=== PATIENT | female | born 1975 | race African-American/Black ===

== ENCOUNTER 2018-04-13 17:59 | Inpatient (IN) | payer OTHER ==
[~2018-04-13] VITALS: Ht 165.1 cm; Wt 138.5 kg
--- NOTE | ~2018-04-13 | EKG ---
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 : 1975 Requested By: Gatito Olmedo Order Number: [id number] MD: Silvestre Krishna Measurements Intervals [place] Rate: 108 P: 45 KS: 128 QRS: 20 QRSD: 79 T: -24 QT: 325 QTc: 436 Interpretive Statements Sinus tachycardia Nonspecific T wave abnormality Poor R wave progression No previous ECG available for comparison Electronically Signed On 04-14-2018 8:42:41 CDT by Silvestre Krishna [email or web address] <ELECTRONICALLY SIGNED> By: Silvestre Krishna MD, [facility] 04/14/18 0842 1809 180 Silvestre Krishna MD, FACC /EPI
--- NOTE | ~2018-04-13 | HC ---
[facility] [address] CONSULTATION Name: MARIAELENA SAHNI Room #: 201-P ADM IN M.R.#: [id number] Admission: 04/13/18 Attend Phys: Emery Rainey MD Discharge: Date of : 71 Report #: [id number] THIS REPORT FOR: //name// CC: Donny Rainey DATE OF SERVICE: 04/15/2018 ATTENDING PHYSICIAN: CHIEF COMPLAINT: Epistaxis. HISTORY OF PRESENT ILLNESS: The patient is a 42-year-old female who is transferred from [facility] via EMS to the emergency room 2 days ago for increasing left-sided chest sensations and dyspnea. She also noted increased chronic knee pain. Noted during en route that she was tachycardic and hypoxic. During the workup in the emergency room, chest x-ray suggested pulmonary edema was present. She was placed in the CCU with acute hypoxic respiratory failure, fluid overload, and history of DVT with subtherapeutic levels of Coumadin and placed on Lovenox on top of her Coumadin. She also had hypertension, which was stable. Her initial INR was subtherapeutic as was her PT. Since being in the hospital the last several days, she has been on nasal oxygen with her demand becoming less, so she has been aggressively diuresed. This morning, she noted a brief left epistaxis, which she was able to control with digital pressure after approximately 10 minutes. She has not had any problems since this morning. In discussion with her, she relates a longstanding history of intermittent mild recurring left nasal bleeds for years, typically occurring over several weeks. She has not had one for several weeks. She has never had any direct treatment for these recurring epistaxis. It should be noted that she has not been on oxygen in the past. I was asked to see her to further evaluate her nares. PAST MEDICAL AND SURGICAL HISTORY: Notable for chronic renal failure, elevated D-dimer, and elevated troponin levels, history of DVT times 2, chronic left knee pain, chronic and severe gout, morbid obesity. PREVIOUS SURGICAL HISTORY: Notable for previous adenotonsillectomy as a young child. FAMILY HISTORY: Notable for mother who at a young age of myocardial infarction. Father had liver cancer. She had a grandmother who had a history of chronic renal failure. SOCIAL HISTORY: She does not imbibe in alcohol or use tobacco products. She resides in nursing facility, was fairly independent. She does say she has had [facility] [address] [place] [address] CONSULTATION Name: MARIAELENA SAHNI Room #: 201-P [facility] IN [facility]#: [id number] Admission: 04/13/18 Attend Phys: Emery Rainey MD Discharge: Date of : 71 Report #: [id number] previous sleep studies, which have not documented sleep apnea. MEDICATIONS: Medication list was reviewed. In her active medication list, of note is the use of the anticoagulants mentioned above. LABORATORY TESTS: Pertinent values: Last hemoglobin of 13.5, hematocrit of 39.6, PT of 17.1, INR of 1.7 with a goal of 2 to 3. It should be noted her PT was 14.2 and an INR of 1.4 on arrival 2 days ago. PHYSICAL EXAMINATION: GENERAL: She was examined in her hospital room. She was seated in her hospital chair with face mask oxygen on, which I had asked to be replaced with nasal cannula. She is alert and oriented, and pleasant in conversation. She was found to be normotensive. HEENT: Examination of the ears was unimpressive. Oral cavity was normal with somewhat dry mucosa. Oropharynx was normal with the exception of some dried blood in the oropharyngeal mucosa. NECK: Normal, but full. Anterior nares revealed some dry mucus, slightly bloody on the right side. The right nasal septal mucosa is extremely dry. No active bleeding noted on this side. On the left side, there was a large fresh clot present, see procedure note. Remainder of her head. Remainder of her head and neck examination was without any positive findings. ASSESSMENT: 1. Acute left anterior/mid septum epistaxis secondary to the combination of the drying infection of the nasal oxygen, previous history of a small nasal septal ulcer, which has been exacerbated by the dryness, and the increase in the anticoagulation. 2. History of acute kidney injury. 3. Diabetes mellitus, hypertension, hypoxia, fluid overload. PLAN: See procedure note for details of treatment for left anterior epistaxis. I recommended the patient not evacuate her nose for at least 7-10 days. She will use a nasal saline spray to keep the nasal mucosa somewhat moist. When she is discharged, she will seed cone picker some [place] nasal gel spray and use this on a regular basis for nasal moisturization. She will need to avoid using any nasal oxygen cannula. Instead, if she needs to be on oxygen, rely on the face mask, which should be humidified air, which she breathes only. She was instructed on the proper way to stop a nosebleed if she has one in the future. She was given a small piece of nasal C-sponge to use in event she has any problems once out of the hospital. I will be happy to reevaluate her as an outpatient should she have further problems when she is discharged from the hospital. Nursing was instructed on these findings as well. Thank you for this consultation. [facility] [place] [address] CONSULTATION Name: MARIAELENA SAHNI Room #: 201-P ADM IN M.R.#: [id number] Admission: 04/13/18 Attend Phys: Emery Rainey MD Discharge: Date of : 71 Report #: [id number] PROCEDURE NOTE: After discussion, the procedure with the patient and verbally obtaining consent, the left naris was evacuated of clots with suction back to the mid posterior nares. There is noted to be a small septal ulcer on the mid portion of the left anterior septum. There was also some mild trauma to the inferior turbinate on this medial inferior edge. After evacuating the clot, several pieces of cotton soaked with Afrin and polocaine were placed in the left naris for vasoconstriction. It should be noted there was no active bleeding, but just a slight oozing was present. After waiting several minutes, the Pontocaine cotton ball was removed, silver nitrate sticks times 2 were applied directly to the nasal septal ulcer and to the small tear of the mucosa on the inferior turbinate. I then placed a single piece of Surgicel over the areas of cauterization. She was observed for several minutes. No other problems were noted at that time. By: [id number] [id number] Royce Amaral MD /nt
--- NOTE | ~2018-04-13 | 2DMMODE ---
[facility] [address] [place] [address] 2 D/M-MODE ECHOCARDIOGRAM Name: MARIAELENA SAHNI Room #: 201-P ADM IN M.R.#: [id number] Admission: 04/13/18 Attend Phys: Soumya Evans Discharge: Date of : 71 Date of Service: 04/14/18 1222 Report #: [id number] THIS REPORT FOR: //name// APPROVED REPORT Study performed: 04/14/2018 10:55:36 EXAM: Comprehensive 2D, Doppler, and color-flow Echocardiogram Patient Location: Bedside Room #: 201 Status: routine BSA: 2.23 HR: 65 bpm BP: 113/43 mmHg Other Information Study Quality: Adequate Indications Diabetes Hypertension/HDD 2D Dimensions RVDd: 40.28 mm LVEF(%): 59.57 (>50%) IVSd: 11.41 (7-11mm) LVOT Diam: 20.90 (18-24mm) LVDd: 53.34 mm PWd: 10.56 (7-11mm) Ascending Ao: 29.19 (22-36mm) LVDs: 36.30 (25-40mm) Aortic Root: 29.09 mm IVC: 16.00 mm Martinez's LVEF: 59.57 % Volumes Left Atrial Volume (Systole) Single Plane 4CH: 24.04 mL Single Plane 2CH: 35.19 mL LA ESV Index: 15.00 mL/m2 Aortic Valve AoV Peak Gary.: 1.51 m/s AO Peak Gr.: 9.15 mmHg LVOT Max P.44 mmHg LVOT Max V: 1.05 m/s WEST Vmax: 2.39 cm2 Mitral Valve E/A Ratio: 1.4 MV Decel. Time: 224.97 ms [facility] [place] [address] 2 D/M-MODE ECHOCARDIOGRAM Name: KAITLYNMARIAELENA Room #: 201-P [facility] IN M.R.#: [id number] Admission: 04/13/18 Attend Phys: Soumya Evans Discharge: Date of : 71 Date of Service: 04/14/18 1222 Report #: [id number] MV E Max Gary.: 0.89 m/s MV A Gary.: 0.62 m/s MV PHT: 65.24 ms IVRT: 69.20 ms Pulmonary Valve PV Peak Gary.: 0.91 m/s PV Peak Gr.: 3.33 mmHg Pulmonary Vein P Vein S: 0.42 m/s P Vein A: 0.26 m/s P Vein D: 0.34 m/s P Vein A Dur.: 83.0 msec P Vein S/D Ratio: 1.24 Tricuspid Valve TR Peak Gary.: 2.72 m/s TR Peak Gr.: 29.59 mmHg PA Pressure: 35.00 mmHg Left Ventricle The left ventricle is normal size. There is normal LV segmental wall motion. There is normal left ventricular wall thickness. The left ventricular systolic function is normal. The left ventricular ejection fraction is within the normal range. LVEF is 55-60%. The left ventricular diastolic function is normal. Right Ventricle The right ventricle is normal size. The right ventricular systolic function is normal. Atria The left atrium size is normal. The right atrium size is normal. Aortic Valve The aortic valve is normal in structure. No aortic regurgitation is present. There is no aortic valvular stenosis. Mitral Valve The mitral valve is normal in structure. Trace mitral regurgitation. No evidence of mitral valve stenosis. Tricuspid Valve The tricuspid valve is normal in structure. There is trace tricuspid regurgitation. Estimated PAP 35 mmHg. There is mild pulmonary hypertension. [facility] [address] [place] [address] 2 D/M-MODE ECHOCARDIOGRAM Name: MARIAELENA SAHNI Room #: 201-P [facility] IN .R.#: [id number] Admission: 04/13/18 Attend Phys: Soumya Evans Discharge: Date of : 71 Date of Service: 04/14/18 1222 Report #: [id number] Pulmonic Valve The pulmonary valve is normal in structure. There is no pulmonic valvular regurgitation. Great Vessels The aortic root is normal in size. IVC is normal in size and collapses >50% with inspiration. Pericardium There is no pericardial effusion. <Conclusion> The left ventricular systolic function is normal. There is normal LV segmental wall motion. LVEF is 55-60%. Normal diastolic function The aortic valve is normal in structure. No aortic regurgitation or stenosis The mitral valve is normal in structure. Trace mitral regurgitation. There is trace tricuspid regurgitation. Estimated pulmonary artery pressure of 35 mmHg. There is no pericardial effusion. <ELECTRONICALLY SIGNED> By: Silvestre Krishna MD, FACC 04/14/18 1222 122 122 Silvestre Krishna MD, FACC /INF
--- NOTE | ~2018-04-13 | HC ---
[facility] [place] [address] [place] [address] CONSULTATION Name: MARIAELENA SAHNI Room #: 201-P ADM IN M.R.#: [id number] Admission: 04/13/18 Attend Phys: Emery Rainey MD Discharge: Date of : 71 Report #: [id number] THIS REPORT FOR: //name// CC: Donny Rainey DATE OF SERVICE: 04/15/2018 REASON FOR THE PRESENTATION: Chest pain. HISTORY OF PRESENT ILLNESS: A 42-year-old with past medical history of diabetes mellitus and hypertension. She is also known to have DVT and maintained on Coumadin. She is a detention facility. She presented with different complaints including left-sided chest pain, shortness of breath. The pain was actually localized to the left shoulder area. She also reported shortness of breath and dyspnea on exertion. She tells me that she had seen a kidney specialist at [facility] and was told that she has a very mild kidney dysfunction. When she presented yesterday, her creatinine was 2.4. She is not aware of nonsteroidal anti-inflammatory medication usage. She is diabetic and maintained on blood pressure and blood sugar medications, but she does not recall those medications. She is also maintained on colchicine on daily basis. No known personal or family history of connective tissue disorders or glomerulonephritis. Her grandmother was a dialysis patient. She tells me that she stays in the nursing facility because of chronic pain. An echo was done yesterday and this showed normal ejection fractions with normal diastolic function. Creatinine had risen up to 3 this morning. BUN had also started to climb up from 45-77. I am being asked to manage her acute kidney injury. PAST MEDICAL HISTORY: 1. Diabetes mellitus. 2. DVT. 3. Hypertension. 4. Hyperlipidemia. 5. Morbid obesity. 6. Chronic pain syndrome. PAST SURGICAL HISTORY: Tonsillectomy. FAMILY HISTORY: Mom of an [place] at the age of 38. Father had liver cancer. SOCIAL HISTORY: No drug or alcohol abuse. She resides in a nursing facility. REVIEW OF SYSTEMS: GENERAL: Significant for the above-mentioned symptoms. No syncope. CARDIOVASCULAR: No chest pain, but dyspnea on exertion present. [facility] [address] [place] [address] CONSULTATION Name: MARIAELENA SAHNI Room #: 201-P [facility] IN M.R.#: [id number] Admission: 04/13/18 Attend Phys: Emery Rainey MD Discharge: Date of : 71 Report #: [id number] PULMONARY: No cough or hemoptysis. GASTROINTESTINAL: No nausea or vomiting. GENITOURINARY: No frequency, no urgency. MEDICATIONS: Listed amongst her home medications. 1. Carvedilol. 2. Voltaren gel. 3. Torsemide. 4. Allopurinol. 5. Colchicine. PHYSICAL EXAMINATION: GENERAL: She is alert, oriented. VITAL SIGNS: Blood pressure was marginal at 95/59. HEAD AND NECK: No jugular venous distention, no bruit, no thyromegaly. CHEST: Clear to auscultation bilaterally. CARDIOVASCULAR: Distant with no rub. ABDOMEN: Soft, nontender. LOWER EXTREMITIES: No edema. LABORATORY DATA: Laboratory values reviewed. Urine is significant for +2 protein with some white blood cell and white blood cell clumps. Bacteria is present. Creatinine is up to 3. BUN is 77. TSH is within normal. C-reactive protein is significantly elevated at 182. White blood cell count was marginally elevated at 12. Urine drug screen positive for opiates. Chest x-ray and lung scan were reviewed. ASSESSMENT, IMPRESSION AND PLAN: 1. Acute kidney injury. 2. Leukocytosis. 3. Elevated C-reactive protein. 4. Diabetes mellitus. 5. Hypertension. 6. I will send appropriate laboratory investigation for her acute kidney injury. Her baseline creatinine is around 1.5. At this point, I will stop her colchicine and torsemide. 7. Pending urine culture. 8. Strict input and output. 9. Daily body weight. 10. Antibiotic initiated by primary team. 11. [place] [address] CONSULTATION Name: MARIAELENA SAHNI Room #: 201-P ADM IN M.R.#: [id number] Admission: 04/13/18 Attend Phys: Emery Rainey MD Discharge: Date of : 71 Report #: [id number] 12. Blood pressure control. 13. Resuming her Coumadin. <ELECTRONICALLY SIGNED> By: Jada Ibrahim MD 04/15/18 0734 0643 1 Jada Irbahim MD /nt
[2018-04-13 18:00] VITALS: BP 146/55
[2018-04-13 18:52] LABS: BE(vivo) 7.3 mmol/L (-2 to +3); HCO3 34.4 mmol/L (22.0-26.0); PCO2 58.2 mmHg (35.0-45.0); PO2 67.5 mmHg (80.0-100.0); pH 7.389 (7.360-7.450); sO2 92.9 % (92.0-98.0)
[2018-04-13 19:23] LABS: ABSOLUTE NEUTROPHILS 9.5 thou/uL (1.4-8.2); BASOPHILS 0.5 % (0.0-2.0); EOSINOPHILS 0.7 % (0.0-3.0); HEMATOCRIT 44.4 % (37.0-47.0); HEMOGLOBIN 14.6 gm/dL (12.0-15.0); LYMPHOCYTES 11.2 % (24.0-44.0); MCH 30.1 pg (26.0-34.0); MCHC 32.8 g/dL (28.0-37.0); MCV 91.7 fL (80.0-100.0); MONOCYTES 8.4 % (1.0-8.0); PLATELET COUNT 255 thou/uL (150-400); POLYS 79.2 % (36.0-66.0); RBC 4.84 mil/uL (4.20-5.00); RDW 16.9 % (10.5-14.5)
[2018-04-13 19:30] LABS: CALCIUM 9.3 mg/dL (8.5-10.1); CREATININE 2.4 mg/dL (0.6-1.0); POTASSIUM 4.2 mmol/L (3.5-5.1)
[2018-04-13 19:38] LABS: ALBUMIN 2.8 g/dL (3.4-5.0); MAGNESIUM 1.5 mg/dL (1.8-2.4); TOTAL BILIRUBIN 0.5 mg/dL (<0.1-1.0); TOTAL PROTEIN 9.2 g/dL (6.4-8.2); TROPONIN-I 0.08 ng/mL (<0.06)
[2018-04-13 19:40] LABS: APTT 35.9 Seconds (24.5-32.8); D-DIMER 0.64 ug/mLFEU (0.19-0.50); INR 1.4; PROTIME 14.2 Seconds (9.3-11.4)
[2018-04-13 21:38] VITALS: BP 133/76
[2018-04-13 21:47] VITALS: BP 133/76
[2018-04-13 22:31] VITALS: BP 111/97
[2018-04-13 23:55] LABS: URINE BILIRUBIN 1+ (Negative); URINE BLOOD 1+ (Negative); URINE CLARITY SL CLOUDY; URINE COLOR YELLOW; URINE GLUCOSE-RANDOM* NEGATIVE (Negative); URINE KETONES NEGATIVE (Negative); URINE NITRITE-REFLEX NEGATIVE (Negative); URINE PROTEIN (DIPSTICK) 2+ (Negative); URINE SPECIFIC GRAVITY 1.025 (1.005-1.035); URINE UROBILINOGEN 0.2 E.U./dl (0.2-1.0)
[2018-04-13 23:56] LABS: URINE LEUKOCYTES-REFLEX 1+ (Negative)
[2018-04-14 00:01] LABS: ICTOTEST (BILI CONFIRMATORY) Positive (Negative)
[2018-04-14 00:02] LABS: AMP/METHAMP Negative (Negative); BARBITURATES Negative (Negative); BENZODIAZEPINES Negative (Negative); COCAINE Negative (Negative); METHADONE Negative (Negative); OPIATES POSITIVE (Negative); PCP Negative (Negative)
[2018-04-14 00:05] LABS: SQUAMOUS 0-3 Few /LPF (0-3)
[2018-04-14 00:06] LABS: BACTERIA-REFLEX >30 Many /HPF (None Seen); CASTS None Seen /LPF (None Seen); CRYSTALS None Seen /LPF (None Seen); MUCUS 0-3 Light strn/LPF (None Seen); URINE RBC 0-2 Rare /HPF (0-2); WBC CLUMPS Moderate (None Seen)
[2018-04-14 01:42] LABS: HEMATOCRIT 39.6 % (37.0-47.0); HEMOGLOBIN 13.5 gm/dL (12.0-15.0); MCH 30.1 pg (26.0-34.0); MCHC 34.1 g/dL (28.0-37.0); RBC 4.5 mil/uL (4.20-5.00); RDW 16.2 % (10.5-14.5); WBC 11.7 thou/uL (4.0-11.0)
[2018-04-14 01:52] LABS: CALCIUM 9.2 mg/dL (8.5-10.1); CREATININE 2.4 mg/dL (0.6-1.0); INR 1.4; MAGNESIUM 1.8 mg/dL (1.8-2.4); POTASSIUM 4.4 mmol/L (3.5-5.1); PROTIME 14.5 Seconds (9.3-11.4)
[2018-04-14] MEDS ORDERED: ALLOPURINOL 10100 M2 PO (04:27)
[2018-04-14] MEDS ORDERED: CARVEDILOL6.25 M1 PO (04:28)
[2018-04-14] MEDS ORDERED: VITAMIN D2000 UNIT PO (04:29)
[2018-04-14] MEDS ORDERED: FEOSOL325 M1 PO (04:30)
[2018-04-14] MEDS ORDERED: MAGOX 400400 MG PO (04:31)
[2018-04-14] MEDS ORDERED: COLCHICINE0.6 MG PO (04:33)
[2018-04-14] MEDS ORDERED: IPRAT-ALBUT 0.5-3 ML IH (04:33)
[2018-04-14] MEDS ORDERED: OXYCONTIN10 M1 PO (04:34)
[2018-04-14] MEDS ORDERED: MIRALAX17 G1 PO (04:35)
[2018-04-14] MEDS ORDERED: RENVELA800 MG PO (04:36)
[2018-04-14] MEDS ORDERED: TORSEMIDE10 MG PO (04:37)
[2018-04-14] MEDS ORDERED: VENTOLIN HFA 1818 GM INH (04:39)
[2018-04-14] MEDS ORDERED: VOLTAREN GEL 1100 G1 TRANSDERM (04:40)
[2018-04-14] MEDS ORDERED: COUMADIN6 MG PO (04:41)
[2018-04-14 04:45] VITALS: BP 113/43
[2018-04-14 07:18] VITALS: BP 106/70
[2018-04-14 11:50] VITALS: BP 108/61
[2018-04-14 15:11] VITALS: BP 111/83
[2018-04-14 19:12] VITALS: BP 101/62
[2018-04-15 04:18] VITALS: BP 95/59
[2018-04-15 04:25] LABS: INR 1.7; PROTIME 17.1 Seconds (9.3-11.4)
[2018-04-15 04:29] LABS: CALCIUM 8.7 mg/dL (8.5-10.1); MAGNESIUM 2.1 mg/dL (1.8-2.4); POTASSIUM 4.3 mmol/L (3.5-5.1)
[2018-04-15 07:29] VITALS: BP 112/59
[2018-04-15 08:52] LABS: URINE CREATININE-RANDOM* 115.2 mg/dL; URINE PROTEIN-RANDOM* 19.6 mg/dL (<11.9)
[2018-04-15 11:17] VITALS: BP 117/69
[2018-04-15 16:16] VITALS: BP 112/55
[2018-04-15 19:29] VITALS: BP 105/64
[2018-04-16 03:31] LABS: ALBUMIN 2.5 g/dL (3.4-5.0); CALCIUM 8.6 mg/dL (8.5-10.1); CREATININE 2.2 mg/dL (0.6-1.0); PHOSPHORUS 4.4 mg/dL (2.5-4.9)
[2018-04-16 03:36] LABS: INR 1.6; PROTIME 16.6 Seconds (9.3-11.4)
[2018-04-16 04:49] VITALS: BP 118/70
[2018-04-16 07:44] VITALS: BP 120/71
[2018-04-16 12:13] VITALS: BP 97/64
[2018-04-16 19:10] VITALS: BP 93/57
[2018-04-17 03:31] LABS: HEMATOCRIT 37.9 % (37.0-47.0); HEMOGLOBIN 12.4 gm/dL (12.0-15.0); MCH 30.4 pg (26.0-34.0); MCHC 32.6 g/dL (28.0-37.0); MCV 93.3 fL (80.0-100.0); PLATELET COUNT 283 thou/uL (150-400); RBC 4.07 mil/uL (4.20-5.00); RDW 16.7 % (10.5-14.5); WBC 6.7 thou/uL (4.0-11.0)
[2018-04-17 03:39] LABS: INR 1.6; PROTIME 16.4 Seconds (9.3-11.4)
[2018-04-17 03:45] LABS: ALBUMIN 2.6 g/dL (3.4-5.0); CALCIUM 9.1 mg/dL (8.5-10.1); CREATININE 1.9 mg/dL (0.6-1.0); PHOSPHORUS 4.7 mg/dL (2.5-4.9)
[2018-04-17 03:50] VITALS: BP 127/65
[2018-04-17 06:13] LABS: ABSOLUTE NEUTROPHILS 3.8 thou/uL (1.4-8.2); ANISOCYTOSIS 1+
[2018-04-17 07:15] VITALS: BP 145/77
[2018-04-17 11:46] VITALS: BP 118/62
[2018-04-17 13:21] LABS: BE(vivo) 10.6 mmol/L (-2 to +3); HCO3 39.2 mmol/L (22.0-26.0); sO2 79.5 % (92.0-98.0)
[2018-04-17 13:22] LABS: PCO2 72.7 mmHg (35.0-45.0); PO2 47.5 mmHg (80.0-100.0)
[2018-04-17 17:28] VITALS: BP 159/114
[2018-04-17 19:10] VITALS: BP 140/93
[2018-04-18] VITALS (23 sets, daily range): BP systolic 104–143; BP diastolic 64–104
[2018-04-18 02:09] LABS: HEMATOCRIT 38.5 % (37.0-47.0); HEMOGLOBIN 12.3 gm/dL (12.0-15.0); MCH 29.4 pg (26.0-34.0); MCHC 31.9 g/dL (28.0-37.0); MCV 92.3 fL (80.0-100.0); PLATELET COUNT 299 thou/uL (150-400); RBC 4.17 mil/uL (4.20-5.00); RDW 16.3 % (10.5-14.5); WBC 9.9 thou/uL (4.0-11.0)
[2018-04-18 02:20] LABS: ALBUMIN 2.5 g/dL (3.4-5.0); CALCIUM 9.7 mg/dL (8.5-10.1); CREATININE 1.7 mg/dL (0.6-1.0); PHOSPHORUS 2.4 mg/dL (2.5-4.9); POTASSIUM 4.4 mmol/L (3.5-5.1)
[2018-04-18 03:40] LABS: ABSOLUTE NEUTROPHILS 4.3 thou/uL (1.4-8.2); ANISOCYTOSIS 1+
[2018-04-18 08:08] LABS: HEMATOCRIT 33.5 % (37.0-47.0); MCH 29.9 pg (26.0-34.0); MCHC 32.8 g/dL (28.0-37.0); MCV 91.1 fL (80.0-100.0); RBC 3.68 mil/uL (4.20-5.00); WBC 10.9 thou/uL (4.0-11.0)
[2018-04-18 08:20] LABS: INR 1.6; PROTIME 16.2 Seconds (9.3-11.4)
[2018-04-18 17:08] LABS: KAPPA FREE LIGHT CHAINS 95.1 mg/L (3.3-19.4); KAPPA/LAMBDA RATIO 1.19 (0.26-1.65); LAMBDA FREE LIGHT CHAINS 79.7 mg/L (5.7-26.3)
[2018-04-19] VITALS (26 sets, daily range): BP systolic 74–137; BP diastolic 58–87
[2018-04-19 05:42] LABS: ABSOLUTE NEUTROPHILS 12.9 thou/uL (1.4-8.2); BASOPHILS 0.6 % (0.0-2.0); EOSINOPHILS 1.5 % (0.0-3.0); HEMATOCRIT 30.8 % (37.0-47.0); HEMOGLOBIN 9.8 gm/dL (12.0-15.0); LYMPHOCYTES 15.6 % (24.0-44.0); MCH 29.4 pg (26.0-34.0); MCV 91.9 fL (80.0-100.0); MONOCYTES 8.2 % (1.0-8.0); PLATELET COUNT 293 thou/uL (150-400); POLYS 74.1 % (36.0-66.0); RBC 3.35 mil/uL (4.20-5.00); WBC 17.4 thou/uL (4.0-11.0)
[2018-04-19 05:56] LABS: ALBUMIN 2.2 g/dL (3.4-5.0); CALCIUM 9.1 mg/dL (8.5-10.1); CREATININE 1.9 mg/dL (0.6-1.0); PHOSPHORUS 4.8 mg/dL (2.5-4.9); POTASSIUM 4.3 mmol/L (3.5-5.1)
[2018-04-19 07:13] LABS: GLOBULIN TOTAL 4.5 g/dL (2.2-3.9); M-SPIKE Not Observed g/dL (Not Observed)
[2018-04-20] VITALS (10 sets, daily range): BP systolic 91–132; BP diastolic 52–72
[2018-04-20 05:10] LABS: ALBUMIN 2.3 g/dL (3.4-5.0); CALCIUM 8.7 mg/dL (8.5-10.1); CREATININE 1.8 mg/dL (0.6-1.0); PHOSPHORUS 5.2 mg/dL (2.5-4.9); POTASSIUM 4.2 mmol/L (3.5-5.1)
[2018-04-21 04:48] VITALS: BP 106/58
[2018-04-21 05:54] LABS: ALBUMIN 2.3 g/dL (3.4-5.0); CALCIUM 8.7 mg/dL (8.5-10.1); CREATININE 1.8 mg/dL (0.6-1.0); PHOSPHORUS 3.6 mg/dL (2.5-4.9); POTASSIUM 4.4 mmol/L (3.5-5.1)
[2018-04-21 06:23] LABS: ABSOLUTE NEUTROPHILS 14.6 thou/uL (1.4-8.2); BASOPHILS 0.5 % (0.0-2.0); EOSINOPHILS 0.3 % (0.0-3.0); HEMATOCRIT 26.5 % (37.0-47.0); HEMOGLOBIN 8.4 gm/dL (12.0-15.0); LYMPHOCYTES 10.2 % (24.0-44.0); MCH 28.8 pg (26.0-34.0); MCHC 31.6 g/dL (28.0-37.0); MCV 91.1 fL (80.0-100.0); MONOCYTES 7.1 % (1.0-8.0); PLATELET COUNT 306 thou/uL (150-400); POLYS 81.9 % (36.0-66.0); RBC 2.91 mil/uL (4.20-5.00); RDW 15.9 % (10.5-14.5); WBC 17.8 thou/uL (4.0-11.0)
[2018-04-21 08:46] VITALS: BP 122/63
[2018-04-21 16:38] VITALS: BP 103/47
[2018-04-21 19:32] VITALS: BP 104/47
[2018-04-22 03:50] VITALS: BP 114/46
[2018-04-22 06:03] LABS: ABSOLUTE NEUTROPHILS 13.6 thou/uL (1.4-8.2); BASOPHILS 0.9 % (0.0-2.0); EOSINOPHILS 0.3 % (0.0-3.0); HEMOGLOBIN 7.8 gm/dL (12.0-15.0); LYMPHOCYTES 14.7 % (24.0-44.0); MCH 29.8 pg (26.0-34.0); MCHC 32.7 g/dL (28.0-37.0); MCV 91.3 fL (80.0-100.0); MONOCYTES 6.2 % (1.0-8.0); PLATELET COUNT 282 thou/uL (150-400); POLYS 77.9 % (36.0-66.0); RBC 2.63 mil/uL (4.20-5.00); RDW 16.2 % (10.5-14.5); WBC 17.4 thou/uL (4.0-11.0)
[2018-04-22 06:19] LABS: ALBUMIN 2.2 g/dL (3.4-5.0); CALCIUM 8.8 mg/dL (8.5-10.1); CREATININE 1.7 mg/dL (0.6-1.0); MAGNESIUM 1.7 mg/dL (1.8-2.4); PHOSPHORUS 3.6 mg/dL (2.5-4.9); POTASSIUM 4.4 mmol/L (3.5-5.1)
[2018-04-22 07:47] VITALS: BP 101/55
[2018-04-22 16:14] VITALS: BP 106/57
[2018-04-22 21:34] VITALS: BP 100/55
[2018-04-23 05:24] VITALS: BP 112/61
[2018-04-23 11:38] LABS: ALBUMIN 2.2 g/dL (3.4-5.0); CALCIUM 9.1 mg/dL (8.5-10.1); CREATININE 1.8 mg/dL (0.6-1.0); PHOSPHORUS 5.2 mg/dL (2.5-4.9); POTASSIUM 4.3 mmol/L (3.5-5.1)
[2018-04-23 16:27] VITALS: BP 108/66
[2018-04-23 17:30] LABS: HEMATOCRIT 26.7 % (37.0-47.0); HEMOGLOBIN 8.5 gm/dL (12.0-15.0)
[2018-04-23 20:22] VITALS: BP 129/69
[2018-04-24 04:26] VITALS: BP 113/56
[2018-04-24 05:43] LABS: ALBUMIN 2.2 g/dL (3.4-5.0); CREATININE 1.7 mg/dL (0.6-1.0); PHOSPHORUS 4.8 mg/dL (2.5-4.9); POTASSIUM 4.3 mmol/L (3.5-5.1)
[2018-04-24 08:45] VITALS: BP 109/63
[2018-04-24 16:02] VITALS: BP 129/68
[2018-04-24 19:30] VITALS: BP 114/63
[2018-04-25 03:02] LABS: ALBUMIN 2.3 g/dL (3.4-5.0); CALCIUM 8.8 mg/dL (8.5-10.1); CREATININE 1.7 mg/dL (0.6-1.0); MAGNESIUM 1.4 mg/dL (1.8-2.4); PHOSPHORUS 4.3 mg/dL (2.5-4.9); POTASSIUM 4.6 mmol/L (3.5-5.1)
[2018-04-25 03:45] VITALS: BP 109/62
[2018-04-25 06:12] LABS: HEMATOCRIT 25.1 % (37.0-47.0); MCH 29.6 pg (26.0-34.0); MCHC 31.8 g/dL (28.0-37.0); MCV 92.9 fL (80.0-100.0); RBC 2.7 mil/uL (4.20-5.00); RDW 16.5 % (10.5-14.5); WBC 19.5 thou/uL (4.0-11.0)
[2018-04-25 08:07] VITALS: BP 108/65
[2018-04-25 08:42] VITALS: BP 108/65
[2018-04-25 16:54] VITALS: BP 104/63
[2018-04-25 20:23] VITALS: BP 94/58
[2018-04-26 00:30] LABS: ALBUMIN 2.4 g/dL (3.4-5.0); CREATININE 1.8 mg/dL (0.6-1.0); POTASSIUM 4.6 mmol/L (3.5-5.1)
[2018-04-26 04:31] VITALS: BP 114/64
[2018-04-26 08:40] VITALS: BP 119/73
[2018-04-26] MEDS ORDERED: HYDROCODONE-AP1 EAC6 PO (10:22)
[2018-04-26 12:30] LABS: PROTIME 10.7 Seconds (9.3-11.4)
== END 2018-04-26 14:11 | DRG 871 ==
LOC: ER 17:59 → 2N 20:36 → EROBS 20:36 → 2N 21:42 → ICU 04-18 03:13 → 4W 04-20 18:48
PROVIDERS: Emergency Medicine; Hospitalist; Internal Medicine; Internal Medicine Nephrology; Internal Medicine Pulmonary Disease; Nurse Practitioner Acute Care; Otolaryngology
PROC: 09CM8ZZ Extirpation of Matter from Nasal Septum, Via Natural or Artificial Opening Endoscopic (ICD-10-PCS; principal; 2018-04-13)
PROC: 2Y41X5Z Packing of Nasal Region using Packing Material (ICD-10-PCS; 2018-04-18)
DX: A41.9 Sepsis, unspecified organism (principal); J96.21 Acute and chronic respiratory failure with hypoxia; J96.22 Acute and chronic respiratory failure with hypercapnia; N17.9 Acute kidney failure, unspecified; N39.0 Urinary tract infection, site not specified; K92.0 Hematemesis; E66.2 Morbid (severe) obesity with alveolar hypoventilation; Z68.43 Body mass index [BMI] 50.0-59.9, adult; J45.909 Unspecified asthma, uncomplicated; I13.10 Hypertensive heart and chronic kidney disease without heart failure, with stage 1 through stage 4 chronic kidney disease, or unspecified chronic kidney disease; N18.3 Chronic kidney disease, stage 3 (moderate); M1A.9XX0 Chronic gout, unspecified, without tophus (tophi); E78.5 Hyperlipidemia, unspecified; E83.42 Hypomagnesemia; G89.4 Chronic pain syndrome; R04.0 Epistaxis; J34.0 Abscess, furuncle and carbuncle of nose; E11.22 Type 2 diabetes mellitus with diabetic chronic kidney disease; I27.20 Pulmonary hypertension, unspecified; K76.0 Fatty (change of) liver, not elsewhere classified; M17.0 Bilateral primary osteoarthritis of knee; D64.9 Anemia, unspecified; Z86.718 Personal history of other venous thrombosis and embolism; Z79.01 Long term (current) use of anticoagulants; Z82.49 Family history of ischemic heart disease and other diseases of the circulatory system; Z84.1 Family history of disorders of kidney and ureter; Z80.8 Family history of malignant neoplasm of other organs or systems; Z79.899 Other long term (current) drug therapy
CPT/HCPCS: 10047; 10078; 10081